=== PATIENT | female | born 1990 | race Two or more races ===

== ENCOUNTER 2016-07-23 23:18 | Emergency (ER) | payer OTHER ==
[~2016-07-23] VITALS: Ht 157.5 cm; Wt 80.3 kg
[~2016-07-23 23:18] MED LIST: NKM; OMEPRAZOLE20 M2 ORAL; PEPCID20 MG ORAL; PRENATAL FORMU1 EAC2 ORAL; TRAMADOL HCL50 MG ORAL; ZOFRAN ODT4 MG ORAL
[2016-07-23 23:50] VITALS: BP 128/86
[2016-07-24] MEDS ORDERED: Mylanta II UD 30ml ORAL ONE (00:15)
[2016-07-24] MEDS ORDERED: Dicyclomine HCl 10mg/5ml oral soln ORAL ONE (00:15)
[2016-07-24] MEDS ORDERED: Lidocaine 2% Visc 15ml soln ORAL ONE (00:15)
[2016-07-24] MEDS ORDERED: TRAMADOL HCL50 MG ORAL (00:45)
[2016-07-24] MEDS ORDERED: PEPCID40 MG PO (00:45)
[2016-07-24 00:50] VITALS: BP 128/86
--- NOTE | 2016-07-24 00:53 | Emergency Room Report ---
History of Present Illness General Chief Complaint: Abdominal Pain Source: Patient Present Illness HPI Patient present with complaints of epigastric abdominal pain Radiating towards the back Onset was about 6 hours ago Patient had increased discomfort going to sleep and therefore presents to the ER Patient has a history of gallstones diagnosed here about 1 year ago denies any vomiting had some mild nausea denies any fevers or chills Denies any chest pain or short of breath she states that she was taking tramadol but is out of that medication Denies any lower abdominal pain Allergies: Coded Allergies: No Known Allergies (Unverified , 07/23/16) Patient History Past Medical History: see triage record Pertinent Family History: none Last Menstrual Period: 2 weeks ago Now: No Reviewed Nursing Documentation: PMH: Agreed, PSxH: Agreed Nursing Documentation-PMH Past Medical History: No History, Except For Review of Systems All Other Systems: negative except mentioned in HPI Physical Exam Vital Signs Date Time Temp Pulse Resp B/P Pulse Ox O2 Delivery O2 Flow Rate FiO2 07/23/16 23:29 98.8 86 16 137/91 99 Room Air Sp02 EP Interpretation: reviewed, normal General Appearance: well appearing, no apparent distress Head: normocephalic, atraumatic Eyes: bilateral eye EOMI, bilateral eye PERRL ENT: hearing grossly normal, normal pharynx, TMs + canals normal, uvula midline Neck: full range of motion, supple, no meningismus, no bony tend Respiratory: lungs clear, normal breath sounds, no rhonchi, no respiratory distress, no retraction, no accessory muscle use Cardiovascular #1: normal peripheral pulses, regular rate, rhythm, no edema, no gallop, no JVD, no murmur Gastrointestinal: normal bowel sounds, non tender, soft, no mass, no organomegaly, non-distended, no guarding, no hernia, no pulsatile mass, no rebound Genitourinary: no CVA tenderness Musculoskeletal: normal inspection Neurologic: oriented x3, responsive, survey superintendent III-XII nml as tested, motor strength/ tone normal, sensory intact Psychiatric: mood/affect normal Skin: normal color, no rash, warm/dry, palpation normal Lymphatic: normal inspection, no adenopathy Medical Decision Making Diagnostic Impression: Primary Impression: Abdominal pain Additional Impression: biliary colic ER Course With the patient's history and examination, multiple differentials considered, including but not limited to , ectopic , ovarian torsion, gastritis, cholecystitis, pancreatitis, appendicitis At this time given the previous history of gallstones I did want to evaluate further for cholecystitis Patient however now states that she feels significantly better Does not want to have any further blood work done Given the lack of any fevers given a soft abdomen I feel that this is an appropriate attempt and will return with any changes Last Vital Signs Date Time Temp Pulse Resp B/P Pulse Ox O2 Delivery O2 Flow Rate FiO2 07/23/16 23:29 98.8 86 16 137/91 99 Room Air Status: improved Disposition: HOME, SELF-CARE Condition: Improved Scripts Famotidine (PEPCID) 40 Mg Tablet 40 MG PO DAILY, #7 TAB 0 Refills Prov: DANIEL BARRAGAN D.O. 07/24/16 Tramadol Hcl* (ULTRAM*) 50 Mg Tablet 50 MG ORAL Q12HR Y for For Pain, #10 TAB 0 Refills Prov: DANIEL BARRAGAN D.O. 07/24/16 Patient Instructions: Abdominal Pain, Adult Additional Instructions: Patient is provided with the discharge instructions notified to follow up with primary doctor in the next 2-3 days otherwise return to the er with any worsening symptoms. DANIEL BARRAGAN D.O. Jul 24, 2016 00:53
== END 2016-07-24 00:49 | disposition home or self-care (01) ==
LOC: EMR 23:59
DX: K80.50 Calculus of bile duct without cholangitis or cholecystitis without obstruction (principal)
CPT/HCPCS: 99282

== ENCOUNTER 2017-08-24 08:00 | Emergency (ER) | payer MEDICAID, OTHER ==
[~2017-08-24] VITALS: Ht 154.9 cm; Wt 95.3 kg
[~2017-08-24 08:00] MED LIST changes: +PEPCID40 MG PO
--- NOTE | 2017-08-24 08:10 | Emergency Room Report ---
History of Present Illness General Chief Complaint: ankle Pain Present Illness HPI Patient is a 26-year-old female who presented to increased ankle pain. Patient reported having a recent fall. She reported having inability to ambulate. The patient presented after injury approximately 7 hours ago. She denies other locations of pain. The pain was to the lateral right foot and ankle. The patient denies any numbness or tingling. She reports having sharp pain. Allergies: Coded Allergies: No Known Allergies (Unverified , 07/23/16) Patient History Past Medical History: see triage record Reviewed Nursing Documentation: PMH: Agreed, PSxH: Agreed Review of Systems All Other Systems: negative except mentioned in HPI Physical Exam General Appearance: well appearing, no apparent distress, alert, GCS 15 Head: normocephalic, atraumatic ENT: hearing grossly normal, normal voice Neck: full range of motion, supple Respiratory: no respiratory distress, speaking full sentences Gastrointestinal: normal inspection Musculoskeletal: no calf tenderness, decreased range of mation, swelling - right ankle lateral malleolus, no distal fibula tenderness Neurologic: normal inspection, alert, oriented x3, responsive, sap crm developer III-XII nml as tested, normal gait Psychiatric: mood/affect normal Skin: no rash Medical Decision Making Diagnostic Impression: Primary Impression: Right ankle sprain ER Course Patient presented for ankle pain. Differential diagnosis included was not limited to sprain, fracture, dislocation, cellulitis, vascular insufficiency. X -ray imaging of the ankle was ordered due to pain. Ankle and foot x-rays read by radiology showed no bony alignment without evident fracture. Patient was given Ian wrap and crutches. The patient is advised to follow up with primary care doctor in 1-2 days. Patient is advised to return if any worsening condition or if any changes in status that are concerning. This report is dictated with [employer] arabic translator software which may occasionally lead to discrepancies related to use of this software. Labs Test 08/24/17 08:03 Urine HCG, Qualitative Negative Status: improved Disposition: HOME, SELF-CARE Condition: Stable Scripts Acetaminophen* (ACETAMINOPHEN EXTRA STRENGTH*) 500 Mg Tablet 500 MG ORAL Q8H Y for Fever/Headache/Mild Pain, #30 TAB Prov: Samy Alan 08/24/17 Samy Alan Aug 24, 2017 08:10
[2017-08-24] MEDS ORDERED: Acetaminophen 500mg (ES) tab ORAL ONE (08:30)
[2017-08-24] MEDS ORDERED: ACETAMINOPHEN500 M3 ORAL (08:52)
--- NOTE | 2017-08-24 08:57 | Diagnostic Imaging Report ---
Indication: Pain Technique: XRAY Ankle Compl Min 3v R Comparison: None Findings: There is no acute fracture. Ankle mortise is intact on these nonstress views. Alignment and joint spaces of the forefoot grossly within normal limits. No radiopaque foreign body seen. Impression: No evidence of acute fracture or dislocation.
--- NOTE | 2017-08-24 08:59 | Diagnostic Imaging Report ---
Indication: Pain status post injury Technique: XRAY Foot Complete R Comparison: None Findings: There is no acute fracture or dislocation. Oval, well-circumscribed density projecting adjacent to the cuboid is noted compatible with an os peroneum. There is a bipartite medial hallux sesamoid. Probable mild hammertoe deformities of the second through fourth digits. No focal soft tissue defect is appreciated. No radiopaque foreign body seen. Impression: No evidence of acute fracture or dislocation.
[2017-08-24 09:20] VITALS: BP 144/60
== END 2017-08-24 09:20 | disposition home or self-care (01) ==
LOC: EMR 08:10
DX: S93.401A Sprain of unspecified ligament of right ankle, initial encounter (principal); W19.XXXA Unspecified fall, initial encounter; Y92.9 Unspecified place or not applicable
CPT/HCPCS: 81025; 99284

== ENCOUNTER 2019-06-12 19:42 | Emergency (ER) | payer MEDICAID, OTHER ==
[~2019-06-12] VITALS: Ht 165.1 cm; Wt 90.7 kg
[~2019-06-12 19:42] MED LIST changes: +ACETAMINOPHEN500 M3 ORAL
[2019-06-12 19:45] VITALS: BP 164/100
--- NOTE | 2019-06-12 19:45 | NUR ---
ED Nurse Note: Patient walked into ED c/o right shoulder pain with onset about 2 days now, rates her pain a 10/10 pain, states that she felt this pain when she woke up, patient randa ble to move right arm freely however with pain, radial pulses noted. patient is alert and oriented x4, patient placed in a bed. states that she does not want x-rays to be done. Dr. Rahman aware and notified
--- NOTE | 2019-06-12 19:45 | NUR ---
Note alonso in EDM - 06/12/19 at 2006 by [facility] ED Nurse Note: Patient walked into ED c/o right shoulder pain with onset about 2 days now, rates her pain a 10/10 pain, states that she felt this pain when she woke up, patient randa ble to move right arm freely however with pain, pedal pulses noted. patient is alert and oriented x4, patient placed in a bed. states that she does not want x-rays to be done. Dr. Rahman aware and notified
[2019-06-12] MEDS ORDERED: NAPROXEN250 MG ORAL (19:56)
--- NOTE | 2019-06-12 19:56 | Emergency Room Report ---
History of Present Illness General Chief Complaint: Pain Source: Patient Present Illness HPI 28-year-old female presents with right trapezius pain, started 2 days ago, patient has been lifting a lot of boxes, her pain is sharp/achy worsened with movement alleviated with rest severity is moderate, constant no fevers no chills patient presents for evaluation. Allergies: Coded Allergies: No Known Allergies (Unverified , 07/23/16) Patient History Past Medical History: see triage record Last Menstrual Period: currently on it Reviewed Nursing Documentation: PMH: Agreed; PSxH: Agreed Nursing Documentation-PMH Past Medical History: No History, Except For Review of Systems All Other Systems: negative except mentioned in HPI Physical Exam Vital Signs Date Time Temp Pulse Resp B/P (MAP) Pulse Ox O2 Delivery O2 Flow Rate FiO2 06/12/19 19:43 98.1 88 18 164/100 (121) 99 Room Air General Appearance: well appearing, no apparent distress Head: normocephalic, atraumatic ENT: hearing grossly normal, normal voice Neck: full range of motion, supple Respiratory: no respiratory distress, speaking full sentences Musculoskeletal: other - Right upper extremity: Negative empty can test range of motion shoulder intact, tenderness to palpation right trapezius, empty can test negative, 5-5 fire systems inspector strength Neurologic: alert, normal gait Psychiatric: mood/affect normal Skin: no rash Medical Decision Making Diagnostic Impression: Primary Impression: Strain of right trapezius muscle Qualified Codes: S46.811A - Strain of other muscles, fascia and tendons at shoulder and upper arm level, right arm, initial encounter ER Course 28-year-old female presents with right trapezius strain differential diagnosis includes bursitis, fracture, strain Disposition home with return precautions Last Vital Signs Date Time Temp Pulse Resp B/P (MAP) Pulse Ox O2 Delivery O2 Flow Rate FiO2 06/12/19 19:43 98.1 88 18 164/100 (121) 99 Room Air Condition: Stable Scripts Naproxen* (NAPROSYN*) 250 Mg Tablet 250 MG ORAL BID PRN for For Pain, #20 TAB 0 Refills Prov: Christofer Rahman MD 06/12/19 Referrals: [facility] Departure Forms: Return to Work Return to Work Date: Jun 16, 2019 Patient Instructions: Muscle Strain, [id number] Additional Instructions: The patient was provided with discharge instructions, notified to follow-up with a primary care doctor and or specialist in the next 24-48 hours, and to return to the ED if they have worsening of their symptoms. Please note that this report is being documented using [employer] technology. This can lead to erroneous entry secondary to incorrect interpretation by the dictating instrument. Christofer Rahman MD Jun 12, 2019 19:56
[2019-06-12 20:00] VITALS: BP 152/82
[2019-06-12] MEDS ORDERED: Acetaminophen 500mg (ES) tab ORAL ONE (20:00)
--- NOTE | 2019-06-12 20:00 | NUR ---
ER DISCHARGE NOTE: Patient is cleared to be discharged per ERMD, pt is aox4, on room air, with stable vital signs. pt was given dc and prescription instructions, pt was able to verbalize understanding, pt id band removed without complications. pt is able to ambulate with steady gait. pt took all belongings.
== END 2019-06-12 20:00 | disposition home or self-care (01) ==
LOC: EMR 19:56
DX: S46.811A Strain of other muscles, fascia and tendons at shoulder and upper arm level, right arm, initial encounter (principal); X50.0XXA Overexertion from strenuous movement or load, initial encounter; Y93.89 Activity, other specified; Y92.9 Unspecified place or not applicable
CPT/HCPCS: 81025; 99283

== ENCOUNTER 2020-01-19 23:52 | Emergency (ER) | payer MEDICAID, OTHER ==
[~2020-01-19] VITALS: Ht 160 cm; Wt 90.7 kg
[~2020-01-19 23:52] MED LIST changes: +NAPROXEN250 MG ORAL
[2020-01-20 00:10] VITALS: BP 162/117
--- NOTE | 2020-01-20 00:10 | NUR ---
ED Nurse Note: Pt ambulated to ED from home c/o L upper abd pain 7/10 for several days, denies N/V/D or constipation. Pt has a hx of gall stones, reports pain is different than previous episodes. Pt is A&Ox4. Hr 101, BP is elevated, placed on case monitor. BP bedside is 127/80
--- NOTE | 2020-01-20 00:59 | Emergency Room Report ---
History of Present Illness General Chief Complaint: Abdominal Pain Source: Patient Present Illness HPI Patient is 29-year-old female presents after increased left-sided abdominal pain. Reports having intermittent sharp pain with associated bloating. Previously been told she had gallstones. She had not been having any vomiting or diarrhea. Denies any bloody stools. Is denies being . States she is not taking any control pills. Denies any recent sick contacts. Allergies: Coded Allergies: No Known Allergies (Unverified , 07/23/16) COVID-19 Screening Contact w/high risk pt: No Recent Travel to affected area: No Experienced COVID-19 symptoms?: No COVID-19 Testing performed CHAIN SPLITTER: No Patient History Past Medical History: see triage record Last Menstrual Period: 01/19/2020 Reviewed Nursing Documentation: PMH: Agreed; PSxH: Agreed Review of Systems All Other Systems: negative except mentioned in HPI Physical Exam Vital Signs Date Time Temp Pulse Resp B/P (MAP) Pulse Ox O2 Delivery O2 Flow Rate FiO2 01/20/20 00:03 98.1 101 19 162/117 (132) 96 Room Air Sp02 EP Interpretation: reviewed, normal General Appearance: normal inspection, well appearing, no apparent distress, alert, GCS 15 Head: atraumatic ENT: normal ENT inspection, hearing grossly normal, normal voice Neck: normal inspection, full range of motion, supple, no bony tend Respiratory: normal inspection, lungs clear, normal breath sounds, no respiratory distress, no retraction, no wheezing Cardiovascular #1: regular rate, rhythm, no edema Gastrointestinal: normal inspection, normal bowel sounds, non tender, soft, no guarding, no hernia Genitourinary: no CVA tenderness Musculoskeletal: normal inspection, back normal, normal range of motion Neurologic: alert, motor strength/tone normal, jukebox routeman III-XII nml as tested, oriented x3, responsive, speech normal, normal inspection Psychiatric: normal inspection, judgement/insight normal, mood/affect normal Medical Decision Making Diagnostic Impression: Primary Impression: Abdominal pain Additional Impression: Gallstones ER Course Patient presented for abdominal pain. Differential diagnoses included ischemic bowel, appendicitis, perforated viscus, abdominal aortic aneurysm, inferior myocardial infarction, viral gastroenteritis among others.patient has an overall benign exam and does not have any significant findings on previous imaging. CT imaging was ordered due to persistent pain. CT read by radiology showed fatty liver as well as gallstones. She does have a history of gallstones however the pain is in the left upper abdomen. Patient was given a GI cocktail. Patient appears to be stable for close outpatient follow up. Patient was advised to follow-up with primary care physician in 1 to 2 days for further evaluation of Discomfort and possible GI referral if necessary. She is advised to return if worse. This medical record is generated with [employer] contact person software. There may be some contact person discrepancies related to use of this software Labs Test 01/20/20 01:05 01/20/20 01:50 Urine Color Yellow Urine Appearance Clear Urine pH 5 (4.5-8.0) Urine Specific [place] 1.030 (1.005-1.035) Urine Protein 1+ (NEGATIVE) Urine Glucose (UA) Negative (NEGATIVE) Urine Ketones Negative (NEGATIVE) Urine Blood 2+ (NEGATIVE) Urine Nitrite Negative (NEGATIVE) Urine Bilirubin Negative (NEGATIVE) Urine Urobilinogen Normal MG/DL (0.0-1.0) Urine Leukocyte Esterase Negative (NEGATIVE) Urine RBC 0-2 /HPF (0 - 2) Urine WBC 0 /HPF (0 - 2) Urine Squamous Epithelial Cells Moderate /LPF (NONE/OCC) Urine Calcium Oxalate Crystals Many /LPF (NONE) Urine Bacteria Few /HPF (NONE) Urine HCG, Qualitative Negative (NEGATIVE) White Blood Count 10.0 K/UL (4.8-10.8) Red Blood Count 4.55 M/UL (4.20-5.40) Hemoglobin 13.3 G/DL (12.0-16.0) Hematocrit 40.7 % (37.0-47.0) Mean Corpuscular Volume 89 FL (80-99) Mean Corpuscular Hemoglobin 29.2 PG (27.0-31.0) Mean Corpuscular Hemoglobin Concent 32.7 G/DL (32.0-36.0) Red Cell Distribution Width 11.9 % (11.6-14.8) Platelet Count 177 K/UL (150-450) Mean Platelet Volume 12.2 FL (6.5-10.1) Neutrophils (%) (Auto) 51.7 % (45.0-75.0) Lymphocytes (%) (Auto) 34.8 % (20.0-45.0) Monocytes (%) (Auto) 8.2 % (1.0-10.0) Eosinophils (%) (Auto) 3.9 % (0.0-3.0) Basophils (%) (Auto) 1.4 % (0.0-2.0) Prothrombin Time 10.3 SEC (9.30-11.50) Prothromb Time International Ratio 0.9 (0.9-1.1) Activated Partial Thromboplast Time 29 SEC (23-33) Sodium Level 140 MMOL/L (136-145) Potassium Level 3.8 MMOL/L (3.5-5.1) Chloride Level 105 MMOL/L (98-107) Carbon Dioxide Level 26 MMOL/L (21-32) Anion Gap 9 mmol/L (5-15) Blood Urea Nitrogen 13 mg/dL (7-18) Creatinine 0.7 MG/DL (0.55-1.30) Estimat Glomerular Filtration Rate > 60 mL/min (>60) Glucose Level 157 MG/DL (74-106) Calcium Level 8.2 MG/DL (8.5-10.1) Total Bilirubin 0.2 MG/DL (0.2-1.0) Aspartate Amino Transf (AST/SGOT) 44 U/L (15-37) Alanine Aminotransferase (ALT/SGPT) 135 U/L (12-78) Alkaline Phosphatase 97 U/L (46-116) Total Protein 7.5 G/DL (6.4-8.2) Albumin 3.9 G/DL (3.4-5.0) Globulin 3.6 g/dL Albumin/Globulin Ratio 1.1 (1.0-2.7) Lipase 72 U/L (73-393) Last Vital Signs Date Time Temp Pulse Resp B/P (MAP) Pulse Ox O2 Delivery O2 Flow Rate FiO2 01/20/20 00:03 98.1 101 19 162/117 (132) 96 Room Air Status: improved Disposition: HOME, SELF-CARE Condition: Stable Scripts Omeprazole (OMEPRAZOLE) 20 Mg Capsule. 20 MG ORAL DAILY, #30 CAP Prov: Samy Alan MD 01/20/20 Referrals: [facility]ERR[facility] (PCP) Samy Alan MD Jan 20, 2020 00:59
[2020-01-20] MEDS ORDERED: Lidocaine 2% Visc 15ml soln ORAL ONE (01:00)
[2020-01-20] MEDS ORDERED: Dicyclomine HCl 10mg/5ml oral soln ORAL ONE (01:00)
[2020-01-20 01:14] LABS: APPEARANCE,URINE CLEAR; BILIRUBIN, URINE NEGATIVE (NEGATIVE); GLUCOSE, URINE (UA) NEGATIVE (NEGATIVE); KETONES,URINE NEGATIVE (NEGATIVE); LEUKOCYTE ESTERASE ,URINE NEGATIVE (NEGATIVE); NITRITE,URINE NEGATIVE (NEGATIVE); PH,URINE 5 (4.5-8.0); PROTEIN,URINE 1+ (NEGATIVE); UROBILINOGEN,URINE NORMAL MG/DL (0.0-1.0)
[2020-01-20 01:16] LABS: COLOR,URINE YELLOW
[2020-01-20] MEDS ORDERED: Ketorolac 30mg Inj IV ONE (01:30)
[2020-01-20 02:05] VITALS: BP 127/81
[2020-01-20 02:16] LABS: ANION GAP 9 mmol/L (5-15); BLOOD UREA NITROGEN 13 mg/dL (7-18); CALCIUM 8.2 MG/DL (8.5-10.1); CARBON DIOXIDE 26 MMOL/L (21-32); CHLORIDE 105 MMOL/L (98-107); CREATININE 0.7 MG/DL (0.55-1.30); POTASSIUM 3.8 MMOL/L (3.5-5.1); SODIUM 140 MMOL/L (136-145)
[2020-01-20 02:18] LABS: INR 0.9 (0.9-1.1)
[2020-01-20 02:20] LABS: BASOPHILS % (AUTO) 1.4 % (0.0-2.0); EOSINOPHILS % (AUTO) 3.9 % (0.0-3.0); HEMATOCRIT 40.7 % (37.0-47.0); HEMOGLOBIN 13.3 G/DL (12.0-16.0); LYMPHOCYTES % (AUTO) 34.8 % (20.0-45.0); MEAN CORPUSCULAR VOLUME 89 FL (80-99); MONOCYTES % (AUTO) 8.2 % (1.0-10.0); NEUTROPHILS % (AUTO) 51.7 % (45.0-75.0); PLATELET COUNT 177 K/UL (150-450); RED BLOOD COUNT 4.55 M/UL (4.20-5.40); RED CELL DISTRIBUTION WIDTH 11.9 % (11.6-14.8)
[2020-01-20 02:22] LABS: ALANINE AMINOTRANSFERASE 135 U/L (12-78); ALBUMIN 3.9 G/DL (3.4-5.0); ALBUMIN/GLOBULIN RATIO 1.1 (1.0-2.7); ALKALINE PHOSPHATASE 97 U/L (46-116); ASPARTATE AMINO TRANSFERASE 44 U/L (15-37); BILIRUBIN,TOTAL 0.2 MG/DL (0.2-1.0)
[2020-01-20] MEDS ORDERED: Omnipaque-300 100ml vial INJ PRN (02:30)
--- NOTE | 2020-01-20 03:02 | NUR ---
ED Nurse Note: Pt to CT
--- NOTE | 2020-01-20 03:33 | NUR ---
ED Nurse Note: Pt back from CT
[2020-01-20] MEDS ORDERED: OMEPRAZOLE20 M2 ORAL (03:41)
[2020-01-20 03:55] VITALS: BP 127/68
--- NOTE | 2020-01-20 03:55 | NUR ---
ER DISCHARGE NOTE: Patient is cleared to be discharged per ERMD, pt is aox4, on room air, with stable vital signs. pt was given dc and prescription instructions, pt was able to verbalize understanding, pt id band and iv site removed without complications. pt is able to ambulate with steady gait. pt took all belongings.
--- NOTE | 2020-01-20 04:25 | Diagnostic Imaging Report ---
EXAM: CT Abdomen and Pelvis With Intravenous Contrast CLINICAL HISTORY: ABD PAIN TECHNIQUE: Axial computed tomography images of the abdomen and pelvis with intravenous contrast. CTDI is 13.7 mGy and DLP is 755 mGy-cm. One or more of the following dose reduction techniques were used: automated exposure control, adjustment of the mA and/or kV according to patient size, use of iterative reconstruction technique. COMPARISON: Abdominal ultrasound November 15, 2015 FINDINGS: Lung bases: Unremarkable. No mass. No consolidation. ABDOMEN: Liver: Hepatic steatosis. Gallbladder and bile ducts: Cholelithiasis. Mild gallbladder wall thickening. No ductal dilation. Pancreas: 5 mm low-attenuation focus in the pancreatic body (series 4 image 37) which may represent focal interdigitating fat. No ductal dilation. Spleen: Unremarkable. No splenomegaly. Adrenals: 1.1 x 0.7 cm right adrenal myelolipoma. Kidneys and ureters: Unremarkable. No solid mass. No hydronephrosis. Stomach and bowel: Sigmoid diverticulosis, without acute diverticulitis. No obstruction. PELVIS: Appendix: No findings to suggest acute appendicitis. Bladder: Unremarkable. No mass. Reproductive: Unremarkable as visualized. ABDOMEN and PELVIS: Intraperitoneal space: Unremarkable. No free air. No significant fluid collection. Bones/joints: Calcified disc bulge at L5-S1. Soft tissues: Small fat-containing umbilical hernia. Vasculature: Unremarkable. No abdominal aortic aneurysm. Lymph nodes: Unremarkable. No enlarged lymph nodes. IMPRESSION: Cholelithiasis. Mild gallbladder wall thickening. Correlate with abdominal ultrasound to exclude acute cholecystitis. Right adrenal myelolipoma , measuring 1.1 x 0.7 cm. Sigmoid diverticulosis, without acute diverticulitis. Hepatic steatosis. Calcified disc bulge at L5-S1.
== END 2020-01-20 03:55 | disposition home or self-care (01) ==
LOC: EMR 01-20 00:29
DX: K80.80 Other cholelithiasis without obstruction (principal); R10.9 Unspecified abdominal pain
CPT/HCPCS: 36415; 74177; 80053; 81003; 81025; 83690; 85025; 85610; 85730; 96374; 96375; J1885; J2405; Q9967; Z7502; 99284